=== PATIENT | female | born 2000 | race African-American/Black ===

== ENCOUNTER 2020-05-12 14:39 | Emergency (ER) | payer MEDICAID ==
[~2020-05-12] VITALS: Ht 170.2 cm; Wt 72.6 kg
--- NOTE | 2020-05-12 15:05 | NUR ---
ED Nurse Note: Patient walked into ED c/o sore throat onset for the past couple days now, patient states that she initially thought that her necklace was the cause of her pain due to her sleeping on it however reported pain has progressively gotten worse, states that as soon as she felt pain she began feeling nauseous, denies fevers, chills, or SOB. patient is alert and oriented x4, ambulatory with a steady gait. rates her pain a 7/10 pain. will wait for further orders
--- NOTE | 2020-05-12 16:15 | Emergency Room Report ---
History of Present Illness General Chief Complaint: Sore Throat Source: Patient Present Illness HPI 19-year-old female presents to the emergency department complaining of 7 out of 10 severity sore throat, progressive headache, fatigue, vomiting and nausea since yesterday. Patient denies fevers and chills but reports hot flashes. She denies ill contacts. Patient denies significant past medical history. Patient denies taking any medications prior to arrival. She reports she did take ibuprofen yesterday with no relief of her symptoms. She denies changes in voice or pain with swallowing. She denies neck pain/stiffness. She denies blood in the vomit or stool. She denies constipation or diarrhea. She denies black tarry stools. She reports that she could possibly be . She denies night sweats or unintentional significant changes in her weight. She denies cough, SOB, dizziness, recent head injury, acute/sudden onset of her DEVINE, or palpitations. She denies abdominal pain or tenderness. She denies swelling of the lips or tongue, she denies wheezing or fb sensation. No any other aggravating or relieving factors at this time. Allergies: Coded Allergies: No Known Allergies (Unverified , 05/12/20) COVID-19 Screening Contact w/high risk pt: No Experienced COVID-19 symptoms?: No COVID-19 Testing performed SET KEY DRIVER: No Patient History Past Medical History: see triage record Past Surgical History: none Pertinent Family History: none Now: No Reviewed Nursing Documentation: PMH: Agreed; PSxH: Agreed Nursing Documentation-PMH Past Medical History: No Stated History Review of Systems All Other Systems: negative except mentioned in HPI Physical Exam Vital Signs Date Time Temp Pulse Resp B/P (MAP) Pulse Ox O2 Delivery O2 Flow Rate FiO2 05/12/20 14:40 81.0 81 19 122/87 (99) 95 Room Air Sp02 EP Interpretation: reviewed, normal General Appearance: no apparent distress, alert, GCS 15, non-toxic Head: normocephalic, atraumatic Eyes: bilateral eye normal inspection, bilateral eye PERRL ENT: hearing grossly normal, normal pharynx, normal voice, uvula midline, moist mucus membranes, pharyngeal erythema Neck: full range of motion, no meningismus, no bony tend Respiratory: chest non-tender, lungs clear, normal breath sounds, no respiratory distress, no accessory muscle use, no wheezing, speaking full sentences Cardiovascular #1: regular rate, rhythm, normal capillary refill Gastrointestinal: normal bowel sounds, non tender, soft, non-distended, no guarding Genitourinary: normal inspection, no CVA tenderness Musculoskeletal: normal range of motion, gait/station normal, non-tender Neurologic: alert, motor strength/tone normal, oriented x3, sensory intact, responsive, speech normal Psychiatric: judgement/insight normal Skin: normal color Lymphatic: no adenopathy Medical Decision Making PA Attestation Dr. Arias Is my supervising Physician whom patient management has been discussed with. Diagnostic Impression: Primary Impression: Sore throat Additional Impression: Acute viral syndrome ER Course 19-year-old female presents to the emergency department complaining of 7 out of 10 severity sore throat, progressive headache, fatigue, vomiting and nausea since yesterday. Patient denies fevers and chills but reports hot flashes. She denies ill contacts. Patient denies significant past medical history. Patient denies taking any medications prior to arrival. She reports she did take ibuprofen yesterday with no relief of her symptoms. She denies changes in voice or pain with swallowing. She denies neck pain/stiffness. She denies blood in the vomit or stool. She denies constipation or diarrhea. She denies black tarry stools. She reports that she could possibly be . She denies night sweats or unintentional significant changes in her weight. She denies cough, SOB, dizziness, recent head injury, acute/sudden onset of her DEVINE, or palpitations. She denies abdominal pain or tenderness. She denies swelling of the lips or tongue, she denies wheezing or fb sensation. No any other aggravating or relieving factors at this time. Ddx considered but are not limited to: pharyngitis, strep, SET KEY DRIVER, ludwigs angina, URI Vital signs: are WNL, pt. is afebrile H&PE are most consistent with: pharyngitis presumed strep. ORDERS: Urine Hcg: Negative ED INTERVENTIONS: -Decadron 8mg IM - Lidocaine PO -Toradol 30mg IM -I do not identify an emergent condition at this time. With current presentation, pt. is stable for close outpatient follow up and conservative treatment. D/w pt. to return promptly to ED with worsening or new symptoms.- Pt. verbalizes' understanding and agreement with proposed treatment plan. This patient was evaluated in the context of the global COVID-19 pandemic, which necessitated consideration that the patient might be at risk for infection with the SARS-COV-2 virus that causes COVID-19. Institutional protocols and algorithms that pertaining to the evaluation of patients at risk for COVID-19 are in a state of rapid change based on information released by multiple regulatory bodies including the CDC and federal and state organizations. These policies and algorithms were followed during the patient's care in the emergency department DISCHARGE: At this time pt. is stable for d/c to home. Will provide printed patient care instructions, and any necessary prescriptions. Care plan and follow up instructions have been discussed with the patient prior to discharge. Last Vital Signs Date Time Temp Pulse Resp B/P (MAP) Pulse Ox O2 Delivery O2 Flow Rate FiO2 05/12/20 14:40 81.0 81 19 122/87 (99) 95 Room Air Disposition: HOME, SELF-CARE Condition: Stable Scripts Ondansetron Odt* (ZOFRAN ODT*) 4 Mg Tab.rapdis 4 MG BC EVERY 6 HOURS PRN for Nausea & Vomiting, #10 TAB 0 Refills Prov: Angela Zurita 05/12/20 Naproxen* (NAPROXEN*) 500 Mg Tablet 500 MG ORAL TWICE A WEEK, #14 TAB 0 Refills Prov: Angela Zurita 05/12/20 Lidocaine HCl 2% Viscous (Lidocaine HCl 2% Viscous) 100 Ml Solution 10 ML ORAL QID, #120 ML Prov: Angela Zurita 05/12/20 Referrals: [facility],REFERRING (PCP) [facility]. [facility] Patient Instructions: Sore Throat Additional Instructions: ~ ~ An emergent medical condition has not been identified based on this patients presentation, exam and any necessary testing/imaging. The patient is determined to be stable for outpatient follow-up and management of symptoms by a primary care provider. PATIENT STATUS : STABLE FOR OUTPATIENT COVID-19 TESTING AND MANAGEMENT, Emergency Interventions are not required at this time. Take medications as directed. Follow up with a Primary Care Provider in 3-5 days, even if your symptoms have resolved. --Please review list of primary care clinics, if you do not already have a primary care provider Return sooner to ED if new symptoms occur, or current symptoms become worse. - Please note that this Emergency Department Report was dictated using [employer] analyst technology software, occasionally this can lead to erroneous entry secondary to interpretation by the dictation equipment. Angela Zurita May 12, 2020 16:15
[2020-05-12 16:30] VITALS: BP 125/82
[2020-05-12] MEDS ORDERED: Lidocaine 1% MPF 10mg/ml 5ml INJ ONE (16:30)
[2020-05-12] MEDS ORDERED: NAPROXEN500 M2 ORAL (16:42)
[2020-05-12] MEDS ORDERED: ONDANSETRON ODT4 MG BC (16:42)
[2020-05-12] MEDS ORDERED: LIDOCAINE VISC100 ML ORAL (16:42)
[2020-05-12 16:50] VITALS: BP 127/80
--- NOTE | 2020-05-12 16:50 | NUR ---
ER DISCHARGE NOTE: Patient is cleared to be discharged per ERMD, pt is aox4, on room air, with stable vital signs. pt was given dc and prescription instructions, pt was able to verbalize understanding, pt id band removed without complications. pt is able to ambulate with steady gait. pt took all belongings.
[2020-05-12] MEDS: Ketorolac 30mg Inj IM ONE (17:01)
[2020-05-12] MEDS: Lidocaine 2% Visc 15ml soln ORAL ONE (17:02)
== END 2020-05-12 16:50 | disposition home or self-care (01) ==
LOC: EMR 15:30
DX: B34.9 Viral infection, unspecified (principal); J02.9 Acute pharyngitis, unspecified
CPT/HCPCS: 81025; 96372; J1100; J1885; Z7502; 99283